=== PATIENT | male | born 1950 | race Caucasian/White ===

== ENCOUNTER 2018-11-14 20:26 | Inpatient (IN) | payer OTHER ==
[~2018-11-14] VITALS: Ht 170.2 cm; Wt 93.0 kg
[2018-11-14 20:30] VITALS: BP_SYST 140
[2018-11-14] MEDS ORDERED: ACETAMINOPHEN 325 MG TABLET PO ONE (20:45)
[2018-11-14] MEDS ORDERED: LORazepam 2 MG/ML VIAL IVP ONE (20:45)
[2018-11-14] MEDS ORDERED: NACL 0.9% 1,000 ML IV ONE (20:45)
[2018-11-14 21:33] LABS: BASOPHILS % (AUTO) 0.1 % (0.0-2.0); EOSINOPHILS % (AUTO) 1.5 % (0.0-4.0); HEMATOCRIT 39.2 % (36-54); HEMOGLOBIN 13.6 g/dL (14.0-18.0); LYMPHOCYTES # (AUTO) 0.6 K/uL (1.0-5.5); LYMPHOCYTES % (AUTO) 20.6 % (20.5-51.5); MEAN CORPUSCULAR HEMOGLOBIN 34 pg (27-31); MEAN CORPUSCULAR HGB CONC 35 % (32-36); MEAN CORPUSCULAR VOLUME 98 fL (79.0-98.0); MONOCYTES % (AUTO) 0.7 % (1.7-9.3); NEUTROPHILS # (AUTO) 2.3 K/uL (1.8-7.7); NEUTROPHILS % (AUTO) 77.1 % (40.0-70.0); PLATELET COUNT (AUTO) 138 K/uL (130-430); RED BLOOD CELL COUNT(AUTO) 3.99 MIL/uL (4.2-6.2); RED CELL DISTRIBUTION WIDTH 12.8 % (9.0-15.0)
[2018-11-14 21:42] LABS: CALCIUM 8.6 mg/dL (8.4-11.0); CREATININE 1.42 mg/dL (0.55-1.30); POTASSIUM 3.9 mmol/L (3.5-5.1)
[2018-11-14 21:42] LABS: BILIRUBIN,URINE NEGATIVE (NEGATIVE); BLOOD, URINE NEGATIVE (NEGATIVE); CLARITY/URINE CLEAR (CLEAR); COLOR,URINE YELLOW (YELLOW); GLUCOSE,URINE NEGATIVE (NEGATIVE); KETONES,URINE NEGATIVE (NEGATIVE); LEUKOCYTE ESTERASE ,URINE NEGATIVE (NEGATIVE); NITRITE, URINE NEGATIVE (NEGATIVE); PROTEIN URINE NEGATIVE (NEGATIVE); UROBILINOGEN,URINE 0.2 (0.2-1.0)
[2018-11-14 21:45] LABS: INR 0.9 (0.80-1.20); PROTHROMBIN TIME 9.5 SECS (9.5-12.5)
[2018-11-14 21:50] LABS: ALBUMIN 3.2 g/dL (3.4-4.8); TOTAL BILIRUBIN 0.5 mg/dL (0.0-1.0)
[2018-11-14] MEDS ORDERED: VALS160T2 PO (23:10)
[2018-11-15] MEDS: NACL 0.9% 1,000 ML IV SCH ×3 (00:01→20:58)
[2018-11-15 01:05] VITALS: BP_SYST 134
[2018-11-15 01:30] VITALS: BP_SYST 134
[2018-11-15 06:42] LABS: CALCIUM 8.3 mg/dL (8.4-11.0); CREATININE 1.38 mg/dL (0.55-1.30); POTASSIUM 4.1 mmol/L (3.5-5.1)
[2018-11-15 07:35] LABS: BASOPHILS % (AUTO) 0.2 % (0.0-2.0); EOSINOPHILS % (AUTO) 0.2 % (0.0-4.0); HEMATOCRIT 37.6 % (36-54); HEMOGLOBIN 12.9 g/dL (14.0-18.0); LYMPHOCYTES # (AUTO) 0.9 K/uL (1.0-5.5); LYMPHOCYTES % (AUTO) 6.5 % (20.5-51.5); MEAN CORPUSCULAR HEMOGLOBIN 34 pg (27-31); MEAN CORPUSCULAR HGB CONC 34 % (32-36); MEAN CORPUSCULAR VOLUME 99 fL (79.0-98.0); MONOCYTES # (AUTO) 0.7 K/uL (0.0-1.0); NEUTROPHILS % (AUTO) 88.1 % (40.0-70.0); PLATELET COUNT (AUTO) 125 K/uL (130-430); RED BLOOD CELL COUNT(AUTO) 3.82 MIL/uL (4.2-6.2); WHITE BLOOD COUNT (AUTO) 13.7 K/uL (4.8-10.8)
[2018-11-15 08:13] VITALS: BP_SYST 129
[2018-11-15] MEDS ORDERED: INSULIN REGULAR, HUMAN 100 UNITS/ML, 10 ML VIAL (humuLIN R) SUBCUT PRN (10:15)
[2018-11-15] MEDS ORDERED: DEXTROSE 50% JECT 50 ML DISP.SYRIN IVP PRN (10:15)
[2018-11-15] MEDS ORDERED: THIAMINE HCL 100 MG TABLET PO ONE (10:30)
[2018-11-15] MEDS ORDERED: chlordiazePOXIDE HCL 25 MG CAPSULE PO ONE (10:30)
[2018-11-15] MEDS ORDERED: LOSARTAN POTASSIUM 50 MG TABLET (COZAAR) PO ONE (10:45)
[2018-11-15] MEDS ORDERED: LEVOFLOXACIN 500 MG/D5W 100 ML IV SCH (11:00)
[2018-11-15 12:00] VITALS: BP_SYST 144
[2018-11-15] MEDS: cefTRIAXone 1 GM in D5W 50 ML IV SCH (13:40)
[2018-11-15] MEDS: GENTAMICIN SULFATE IV SCH (16:02)
[2018-11-15] MEDS: NS IV SCH (16:02)
[2018-11-15 17:20] VITALS: BP_SYST 142
[2018-11-15 20:01] VITALS: BP_SYST 149
[2018-11-15] MEDS: chlordiazePOXIDE HCL 25 MG CAPSULE PO SCH (20:56)
[2018-11-16] VITALS (7 sets, daily range): BP systolic 113–154
[2018-11-16] MEDS: GENTAMICIN SULFATE IV SCH ×2 (04:54→16:14)
[2018-11-16] MEDS: NS IV SCH ×2 (04:54→16:14)
[2018-11-16] MEDS: NACL 0.9% 1,000 ML IV SCH ×2 (04:57→16:15)
[2018-11-16 07:08] LABS: BASOPHILS % (AUTO) 0.3 % (0.0-2.0); EOSINOPHILS # (AUTO) 0.1 K/uL (0.0-0.4); HEMATOCRIT 37.6 % (36-54); HEMOGLOBIN 12.6 g/dL (14.0-18.0); LYMPHOCYTES % (AUTO) 15.3 % (20.5-51.5); MEAN CORPUSCULAR HEMOGLOBIN 33 pg (27-31); MEAN CORPUSCULAR HGB CONC 34 % (32-36); MEAN CORPUSCULAR VOLUME 99 fL (79.0-98.0); MONOCYTES # (AUTO) 0.9 K/uL (0.0-1.0); MONOCYTES % (AUTO) 7.2 % (1.7-9.3); NEUTROPHILS # (AUTO) 9.9 K/uL (1.8-7.7); NEUTROPHILS % (AUTO) 76.2 % (40.0-70.0); PLATELET COUNT (AUTO) 116 K/uL (130-430); RED BLOOD CELL COUNT(AUTO) 3.78 MIL/uL (4.2-6.2); RED CELL DISTRIBUTION WIDTH 13.2 % (9.0-15.0)
[2018-11-16 07:41] LABS: ALBUMIN 2.5 g/dL (3.4-4.8); CALCIUM 7.9 mg/dL (8.4-11.0); CREATININE 1.24 mg/dL (0.55-1.30); TOTAL BILIRUBIN 0.4 mg/dL (0.0-1.0)
[2018-11-16] MEDS: cefTRIAXone 1 GM in D5W 50 ML IV SCH (09:14)
[2018-11-16] MEDS: LOSARTAN POTASSIUM 50 MG TABLET (COZAAR) PO SCH (09:15)
[2018-11-16] MEDS: chlordiazePOXIDE HCL 25 MG CAPSULE PO SCH ×3 (09:15→20:48)
[2018-11-16] MEDS: THIAMINE HCL 100 MG TABLET PO SCH (09:15)
[2018-11-16] MEDS ORDERED: ENALAPRILAT DIHYDRATE 1.25 MG/ML VIAL IVP PRN (17:45)
[2018-11-16] MEDS ORDERED: cloNIDine HCL 0.1 MG TABLET PO PRN (17:45)
[2018-11-16] MEDS ORDERED: cloNIDine HCL 0.1 MG TABLET ONE (18:48)
[2018-11-17] VITALS: BP_SYST 133
[2018-11-17] MEDS: NACL 0.9% 1,000 ML IV SCH (01:36)
[2018-11-17] MEDS: GENTAMICIN SULFATE IV SCH (04:09)
[2018-11-17] MEDS: NS IV SCH (04:09)
[2018-11-17 08:09] VITALS: BP_SYST 140
[2018-11-17] MEDS: chlordiazePOXIDE HCL 25 MG CAPSULE PO SCH (09:50)
[2018-11-17] MEDS: THIAMINE HCL 100 MG TABLET PO SCH (09:57)
[2018-11-17] MEDS: LOSARTAN POTASSIUM 50 MG TABLET (COZAAR) PO SCH (09:57)
[2018-11-17] MEDS: cefTRIAXone 1 GM in D5W 50 ML IV SCH (09:58)
[2018-11-17 10:50] VITALS: BP_SYST 138
[2018-11-17 10:52] VITALS: BP_SYST 138
[2018-11-17] MEDS ORDERED: SPIR25TA6 PO (10:58)
[2018-11-17] MEDS ORDERED: LEVO750T45 PO (11:00)
[2018-11-17] MEDS ORDERED: MV,C1TAB21 PO (11:00)
[2018-11-17] MEDS ORDERED: LACT1CAP72 PO (11:01)
[2018-11-17] MEDS ORDERED: FURO-150 PO (11:02)
== END 2018-11-17 11:30 | disposition home or self-care (01) | DRG 872 ==
LOC: SED 20:26 → STU 23:36 → SMU 11-16 10:42
PROVIDERS: ADMIT Internal Medicine Hospice and Palliative Medicine; ATTEND Internal Medicine Hospice and Palliative Medicine
DX: A41.50 Gram-negative sepsis, unspecified (principal); N39.0 Urinary tract infection, site not specified; E11.9 Type 2 diabetes mellitus without complications; I10 Essential (primary) hypertension; K74.60 Unspecified cirrhosis of liver; F10.10 Alcohol abuse, uncomplicated; F17.210 Nicotine dependence, cigarettes, uncomplicated; E66.01 Morbid (severe) obesity due to excess calories; Z68.32 Body mass index [BMI] 32.0-32.9, adult
CPT/HCPCS: 36415; 71045; 76700-TC; 80048; 80053; 81003; 82962; 83605; 84484; 85025; 85610-TC; 85730-TC; 86710; 87040-TC; 87186-TC; 93005; 96365; 96375; 99285; G0378; J0696; J1580; J1815; J1956; J2060; J7030; J7060

== ENCOUNTER 2019-03-25 11:29 | Outpatient (CLI) | payer OTHER, MEDICARE ==
[~2019-03-25 11:29] MED LIST: FURO-150 PO; LACT1CAP72 PO; LEVO750T45 PO; MV,C1TAB21 PO; SPIR25TA6 PO; VALS160T2 PO
== END 2019-03-25 20:17 | disposition home or self-care (01) ==
LOC: SUS 11:29
PROVIDERS: ATTEND Internal Medicine
DX: E04.9 Nontoxic goiter, unspecified (principal)
CPT/HCPCS: 76536-TC